=== PATIENT | female | born 1945 | race Caucasian/White ===

== ENCOUNTER 2018-08-16 09:45 | Emergency (ER) | payer MEDICARE, OTHER ==
[~2018-08-16] VITALS: Ht 167.6 cm; Wt 59.1 kg
[2018-08-16 09:45] VITALS: BP 175/155
[2018-08-16 10:24] VITALS: PULSE 0
--- NOTE | 2018-08-16 10:34 | NUR ---
Initial visit; Called to Emergency Services to manager shipping to patient's family. Patient . Radio Presenter offered prayer for family and later for patient.
--- NOTE | 2018-08-16 10:59 | NUR ---
SW attended for support due to CB-passing. DTR Allison Antonio at side , The patient has three children Allison, Lucie East , Edward Roberts . Edward is reports to have copies of DPOA and Living Will. Lucie was given fax number to send proxy info to . Family chose to transport patient back to [place] for . Educated DTR on choosing a home in [place] and locally to facilitate transport. Family went to meet with Rayna. PT [id number]. SW provide register with a copy of medicaid coverage, [employer] coverage, and DL-identification. Current address [address] [place] [address], [id number]. Nothing follows.
== END 2018-08-16 13:53 | disposition expired ==
LOC: COL.ER 09:45 → EDBD 09:49 → COL.ER 09:49
DX: I46.9 Cardiac arrest, cause unspecified (principal); Z85.3 Personal history of malignant neoplasm of breast
CPT/HCPCS: J0171; J7030